=== PATIENT | male | born 1945 | race Caucasian/White ===

== ENCOUNTER 2018-02-11 10:00 | Inpatient (IN) | payer MEDICARE, OTHER ==
[~2018-02-11] VITALS: Ht 185.4 cm; Wt 104.8 kg
[~2018-02-11 10:00] MED LIST: ALEVE 220MG220 MG PO; ASPIRIN 81M81 MG/TA2 PO; CEPHALEXIN500 M1 PO; MULTAQ400 MG PO; NORCO 325 MG-51 TAB PO; TYLENOL 325MG325 MG PO; VASOTEC 5MG5 MG/TAB PO
[2018-03-22] MEDS ORDERED: LIPITOR20 MG PO (09:14)
[2018-03-22] MEDS ORDERED: FLONASEALLERGY NS (09:14)
[2018-03-22 09:15] VITALS: BP 158/99; PULSE 109; TEMP 98
[2018-03-22] MEDS ORDERED: SYNTHROID 0.0.025 MG PO (09:15)
[2018-03-22] MEDS ORDERED: COZAAR 50MG50 MG/TAB PO (09:15)
[2018-03-22] MEDS ORDERED: TOPROL XL 25MG25 MG PO (09:16)
[2018-03-22] MEDS ORDERED: GLUCOPHAGE500 MG/TAB PO (09:16)
[2018-03-22] MEDS ORDERED: ELIQUIS 5MG PO (09:18)
[2018-03-22 10:09] LABS: BASO % 0.5 % (0.0-2.0); EOS # 0.1 (0.0-0.7); EOS % 1.4 % (0-4.0); GRAN # 4.4 (1.4-6.5); GRAN % 56.9 % (42.2-75.2); HEMATOCRIT 44.5 % (42.0-52.0); HEMOGLOBIN 15.7 g/dl (13.5-18.0); LYMPH # 2.5 (1.2-3.4); LYMPH % 32.9 % (20.0-51.0); MEAN CELL VOLUME 85 fl (80.0-100.0); MEAN CORPUSCULAR HEMOGLOBIN 30 pg (27.0-31.0); MEAN CORPUSCULAR HGB CONC 35 g/dl (33.0-37.0); MEAN PLATELET VOLUME 11.1 fl (7.4-10.4); MONO # 0.6 (0.1-0.6); PLATELET COUNT 239 K/mm3 (130-400); RED BLOOD COUNT 5.26 M/mm3 (4.20-5.60)
[2018-03-22 10:10] LABS: INR 1.2 (0.8-3.0); PROTHROMBIN TIME 13.3 SECONDS (9.7-12.8)
[2018-03-22 10:15] LABS: ALBUMIN 4.5 gm/dL (3.5-5.0); BILIRUBIN,TOTAL 0.7 mg/dL (0.0-1.0); CALCIUM 9.4 mg/dL (8.4-10.2); CREATININE, serum 0.99 mg/dL (0.66-1.25); MAGNESIUM 1.8 mg/dL (1.6-2.3); POTASSIUM 4.1 mmol/L (3.4-5.0); TOTAL PROTEIN 7.3 gm/dL (6.4-8.2)
[2018-03-22 12:00] VITALS: BP 128/89; PULSE 99; TEMP 99.3
[2018-03-22 16:04] VITALS: BP 134/75; PULSE 70; TEMP 97.8
[2018-03-22 19:47] VITALS: BP 147/72; PULSE 74; TEMP 97.5
[2018-03-22 23:18] VITALS: BP 139/80; PULSE 64; TEMP 97.6
[2018-03-23 04:40] VITALS: BP 111/66; PULSE 133; TEMP 97.6
[2018-03-23 07:31] VITALS: BP 122/76; PULSE 65; TEMP 97.4
[2018-03-23 11:47] VITALS: BP 107/70; PULSE 88; TEMP 97.6
[2018-03-23 15:43] VITALS: BP 112/62; PULSE 61; TEMP 98.4
[2018-03-23 20:00] VITALS: BP 134/71; PULSE 72; TEMP 97.2
[2018-03-24] VITALS: BP 131/74; PULSE 80; TEMP 96.2
[2018-03-24 04:00] VITALS: BP 102/65; PULSE 63; TEMP 97.3
[2018-03-24 08:00] VITALS: BP 102/52; PULSE 71; TEMP 96.6
[2018-03-24] MEDS ORDERED: BETAPACE 80MG80 MG PO (08:26)
[2018-03-24 09:10] VITALS: BP 102/52; PULSE 71
[2018-03-24 09:25] VITALS: BP 127/70; PULSE 72
[2018-03-24 09:40] VITALS: BP 127/70; PULSE 75
== END 2018-03-24 11:21 | disposition home or self-care (01) | DRG 310 ==
LOC: MEDICAL 03-01 09:59
PROVIDERS: Internal Medicine Cardiovascular Disease
PROC: 5A2204Z Restoration of Cardiac Rhythm, Single (ICD-10-PCS; principal; 2018-03-24)
DX: I48.0 Paroxysmal atrial fibrillation (principal); I10 Essential (primary) hypertension; Z95.0 Presence of cardiac pacemaker; I48.92 Unspecified atrial flutter
CPT/HCPCS: J2250; J3010

== ENCOUNTER 2024-07-01 07:54 | Day surgery (SDC) | payer MEDICARE, OTHER ==
[2024-07-01] VITALS (7 sets, daily range): BP systolic 129–161; BP diastolic 75–120; PULSE 66–108
[~2024-07-01] VITALS: Ht 185.5 cm; Wt 97.5 kg
[~2024-07-01 07:54] MED LIST changes: +BETAPACE 80MG80 MG PO; +COZAAR 50MG50 MG/TAB PO; +ELIQUIS 5MG PO; +FLONASEALLERGY NS; +GLUCOPHAGE500 MG/TAB PO; +LIPITOR20 MG PO; +LR 1,000 ML IV SCH; +SYNTHROID 0.0.025 MG PO; +TOPROL XL 25MG25 MG PO
[2024-07-01] MEDS ORDERED: NS Flush 10 ML SYRINGE PRN ICA (08:30)
[2024-07-01 08:55] LABS: HEMATOCRIT 47.5 % (42.0-52.0); HEMOGLOBIN 16.3 g/dl (13.5-18.0); MEAN CELL VOLUME 89 fl (80.0-100.0); MEAN CORPUSCULAR HEMOGLOBIN 31 pg (27-31); MEAN CORPUSCULAR HGB CONC 34 g/dl (33.0-37.0); MEAN PLATELET VOLUME 11.2 fl (7.4-10.4); PLATELET COUNT 232 K/mm3 (130-400); RED BLOOD COUNT 5.35 M/mm3 (4.20-5.60); REDCELL DISTRIBUTION WIDTH-CV 12.5 % (11.5-14.5)
[2024-07-01] MEDS ORDERED: SYNTHROID0.05 MG/TA PO (08:57)
[2024-07-01] MEDS ORDERED: BETAPACE 80MG80 MG PO (08:58)
[2024-07-01] MEDS ORDERED: AMARYL4 MG PO (08:58)
[2024-07-01] MEDS ORDERED: BENICAR 20MG TA20 MG PO (08:59)
[2024-07-01] MEDS ORDERED: JARDIANCE10 PO (09:00)
[2024-07-01] MEDS ORDERED: CARDIZEM CD 18180 MG PO (09:00)
[2024-07-01] MEDS ORDERED: NS Flush 10 ML SYRINGE BID ICA SCH (09:00)
[2024-07-01 09:24] LABS: CALCIUM 10.1 mg/dL (8.4-10.2); CREATININE, serum 0.93 mg/dL (0.72-1.25); INR 1.4 (0.8-3.0); MAGNESIUM 2.2 mg/dL (1.6-2.6); POTASSIUM 4.1 mEq/L (3.5-4.5); PROTHROMBIN TIME 14.8 SECONDS (9.7-12.8)
[2024-07-01 09:26] LABS: PARTIAL THROMBOPLASTIN TIME 37.1 SECONDS (26.0-37.0)
[2024-07-01] MEDS ORDERED: Hydrocortisone 1% Cream 30 GM TUBE TP PRN (09:30)
[2024-07-01 09:59] LABS: THYROID STIMULATING HORMONE 2.529 uIU/mL (0.350-4.940)
--- NOTE | 2024-07-01 11:54 | NUR ---
pt tolerated recovery period well. vs remained within normal limits. pt free from acute concerns and complaints upon discharge. pt assisted to main lobby via wheelchair. pt remained in sinus rhythm throughout recovery. pt verbalized understanding of discharge instructions.
== END 2024-07-01 11:55 | disposition home or self-care (01) ==
LOC: COL.CAR 07:54
PROVIDERS: Internal Medicine Cardiovascular Disease
DX: I48.91 Unspecified atrial fibrillation (principal); I49.5 Sick sinus syndrome; Z95.0 Presence of cardiac pacemaker; Z87.891 Personal history of nicotine dependence
CPT/HCPCS: J2704